=== PATIENT | male | born 1940 | race Caucasian/White ===

== ENCOUNTER 2022-05-27 20:32 | Inpatient (IN) ==
[2022-05-27] MEDS ORDERED: NS 0.9% 1000 ml BAG 1,000 ML IV ONE (20:33)
[2022-05-27] MEDS ORDERED: Ondansetron 4 mg VIAL 2 MG/ML 2 ml VIAL IV ONE ×2 (20:38→23:10)
[2022-05-27 22:16] LABS: Hematocrit 46 % (42-52); Hemoglobin 14.2 g/dL (14.0-18.0); Mean Corpuscular HGB Conc 31 g/dL (31-36); Mean Corpuscular Hemoglobin 24 pg (27-31); Mean Corpuscular Volume 78 fL (80-94); Mean Platelet Volume 9.7 fL (7.4-10.4); Platelet Count 218 10^3/uL (150-450); Red Blood Count 5.91 10^6 /uL (4.18-5.48); Red Cell Distribution Width 24 % (10-15); White Blood Count 8.1 10^3/uL (3.5-10.8)
[2022-05-27] MEDS ORDERED: Piperacillin/Tazobac ADVAN 3.375 GM in NS 0.9% 100 ml BAG 100 ML IV ONE (22:39)
[2022-05-27 22:52] LABS: ABS Lymphocytes 1.1 10^3/ul (1.0-4.8); ABS Monocytes 0.6 10^3/ul (0-0.8); ABS Neutrophils 6.3 10^3/ul (1.5-7.7); Albumin 4.4 g/dL (3.2-5.2); Albumin/Globulin Ratio 1.6 (1-3); C Reactive Protein 4.02 mg/L (<8.01); Calcium 11.2 mg/dL (8.6-10.3); Eosinophil % 0.2 %; Globulin 2.8 g/dL (2-4); Lymphocyte % 13.3 %; Total Bilirubin 0.7 mg/dL (0.2-1.0); Total Protein 7.2 g/dL (6.4-8.9); eGFR CKD-EPI 45.3 (>60)
[2022-05-27 22:54] LABS: Potassium 5.1 mmol/L (3.5-5.0)
[2022-05-27] MEDS ORDERED: fentaNYL 100 mcg/2 ml 50 MCG/ML VIAL IV SLOW PU ONE (23:10)
[2022-05-28] MEDS ORDERED: fentaNYL 100 mcg/2 ml 50 MCG/ML VIAL ONE (01:57)
[2022-05-28] MEDS ORDERED: Rocuronium 50 mg VIAL 10 mg/ml 5 ml VIAL (50 mg) ONE (02:02)
[2022-05-28] MEDS ORDERED: Lidocaine 2% PF 5 ML VIAL ONE (02:02)
[2022-05-28] MEDS ORDERED: Dexamethasone IV 4 MG/ML VIAL 1 ml VIAL ONE (02:03)
[2022-05-28] MEDS ORDERED: Propofol 10 MG/ML 20 ML BTL ONE (02:03)
[2022-05-28] MEDS ORDERED: Bupivacaine 0.25% EPI 200,000 30 ML SDV ONE (02:07)
[2022-05-28] MEDS ORDERED: Phenylephrine 40 mcg/mL 10mL (400mcg) SYRINGE ONE ×3 (02:39→04:56)
[2022-05-28] MEDS ORDERED: Calcium CHLORIDE 10% SYRINGE 1 GM/10 ML ONE (03:21)
[2022-05-28] MEDS ORDERED: Albumin Human 5% 12.5 GM/250 ML BTL IV ONE (04:00)
[2022-05-28] MEDS ORDERED: Ondansetron 4 mg VIAL 2 MG/ML 2 ml VIAL ONE (04:38)
[2022-05-28] MEDS ORDERED: Acetaminophen IV 1 GM/100ML 1,000 MG/100 ML BAG IV ONE (04:38)
[2022-05-28] MEDS ORDERED: HYDROmorphone 1 MG/1 ML SYRINGE IV SLOW PU PRN (05:23)
[2022-05-28] MEDS ORDERED: Ondansetron 4 mg VIAL 2 MG/ML 2 ml VIAL IV PRN ×2 (05:23→05:50)
[2022-05-28] MEDS ORDERED: fentaNYL 100 mcg/2 ml 50 MCG/ML VIAL IV PRN (05:50)
[2022-05-28] MEDS ORDERED: Naloxone 0.4 mg VIAL 0.4 mg/ml 1 ml VIAL IV PRN (05:50)
[2022-05-28] MEDS ORDERED: Lactated Ringers 1000 ml BAG 1,000 ML IV SCH (06:00)
[2022-05-28] MEDS: Piperacillin/Tazobactam VIAL 3.375 GM in NS 0.9% 100 ml BAG 100 ML IVPB SCH ×3 (07:05→22:55)
[2022-05-28] MEDS: Pantoprazole 80 mg in NS BAG 80 MG/250 ML BAG IV SCH ×2 (07:05→16:58)
[2022-05-28 07:21] LABS: Hematocrit 42 % (42-52); Hemoglobin 13.1 g/dL (14.0-18.0); Mean Corpuscular HGB Conc 31 g/dL (31-36); Mean Corpuscular Hemoglobin 24 pg (27-31); Mean Corpuscular Volume 78 fL (80-94); Mean Platelet Volume 9.5 fL (7.4-10.4); Platelet Count 160 10^3/uL (150-450); Red Blood Count 5.39 10^6 /uL (4.18-5.48); Red Cell Distribution Width 23 % (10-15); White Blood Count 5.1 10^3/uL (3.5-10.8)
[2022-05-28 07:23] LABS: ABS Lymphocytes 0.4 10^3/ul (1.0-4.8); ABS Monocytes 0.6 10^3/ul (0-0.8); ABS Neutrophils 4.1 10^3/ul (1.5-7.7); Eosinophil % 0.1 %; Lymphocyte % 8.2 %
[2022-05-28 08:00] LABS: Albumin 3.7 g/dL (3.2-5.2); Albumin/Globulin Ratio 1.7 (1-3); Calcium 10.5 mg/dL (8.6-10.3); Globulin 2.2 g/dL (2-4); Total Protein 5.9 g/dL (6.4-8.9); eGFR CKD-EPI 40.5 (>60)
[2022-05-28] MEDS: NS 0.9% 1000 ml BAG 1,000 ML IV SCH ×2 (08:29→17:08)
[2022-05-28] MEDS ORDERED: NS 0.9% 500 ml BAG 500 ML IV ONE (12:39)
[2022-05-28] MEDS ORDERED: Dextrose 50% Syringe 50 ml 25 GM/50 ML SYRINGE IV PUSH PRN (15:09)
[2022-05-28] MEDS ORDERED: Phenol 1.4% Throat Spray 177 ml BTL MT PRN (16:36)
[2022-05-29] MEDS: NS 0.9% 1000 ml BAG 1,000 ML IV SCH ×3 (01:44→21:26)
[2022-05-29] MEDS: Pantoprazole 80 mg in NS BAG 80 MG/250 ML BAG IV SCH ×2 (03:32→13:56)
[2022-05-29 05:10] LABS: Hematocrit 36 % (42-52); Hemoglobin 11.6 g/dL (14.0-18.0); Mean Corpuscular HGB Conc 32 g/dL (31-36); Mean Corpuscular Hemoglobin 25 pg (27-31); Mean Corpuscular Volume 78 fL (80-94); Mean Platelet Volume 9.6 fL (7.4-10.4); Platelet Count 130 10^3/uL (150-450); Red Blood Count 4.69 10^6 /uL (4.18-5.48); Red Cell Distribution Width 24 % (10-15); White Blood Count 9.2 10^3/uL (3.5-10.8)
[2022-05-29 05:49] LABS: Calcium 8.5 mg/dL (8.6-10.3); eGFR CKD-EPI 40.2 (>60)
[2022-05-29 06:02] LABS: Potassium 5.2 mmol/L (3.5-5.0)
[2022-05-29] MEDS: Piperacillin/Tazobactam VIAL 3.375 GM in NS 0.9% 100 ml BAG 100 ML IVPB SCH ×3 (06:22→21:40)
[2022-05-29 08:37] LABS: ABS Lymphocytes 0.8 10^3/ul (1.0-4.8); ABS Monocytes 0.9 10^3/ul (0-0.8); ABS Neutrophils 7.4 10^3/ul (1.5-7.7); Eosinophil % 0.1 %
[2022-05-30] MEDS: Pantoprazole 80 mg in NS BAG 80 MG/250 ML BAG IV SCH ×4 (01:38→23:26)
[2022-05-30] MEDS: Piperacillin/Tazobactam VIAL 3.375 GM in NS 0.9% 100 ml BAG 100 ML IVPB SCH ×3 (05:22→19:45)
[2022-05-30] MEDS: NS 0.9% 1000 ml BAG 1,000 ML IV SCH (06:49)
[2022-05-30 07:14] LABS: Hematocrit 35 % (42-52); Hemoglobin 10.7 g/dL (14.0-18.0); Mean Corpuscular HGB Conc 31 g/dL (31-36); Mean Corpuscular Hemoglobin 25 pg (27-31); Mean Corpuscular Volume 80 fL (80-94); Mean Platelet Volume 9.7 fL (7.4-10.4); Platelet Count 137 10^3/uL (150-450); Red Blood Count 4.37 10^6 /uL (4.18-5.48); Red Cell Distribution Width 24 % (10-15); White Blood Count 8.4 10^3/uL (3.5-10.8)
[2022-05-30 07:53] LABS: Calcium 8.3 mg/dL (8.6-10.3); Magnesium 2.3 mg/dL (1.9-2.7); Potassium 4.3 mmol/L (3.5-5.0); Total Bilirubin 0.7 mg/dL (0.2-1.0)
[2022-05-30 07:59] LABS: Albumin/Globulin Ratio 1.4 (1-3); Globulin 2.2 g/dL (2-4); Phosphorus 2.1 mg/dL (2.5-5.0); Total Protein 5.2 g/dL (6.4-8.9); eGFR CKD-EPI 47.5 (>60)
[2022-05-31] MEDS: Piperacillin/Tazobactam VIAL 3.375 GM in NS 0.9% 100 ml BAG 100 ML IVPB SCH ×4 (00:28→18:30)
[2022-05-31 08:32] LABS: Calcium 8.9 mg/dL (8.6-10.3); Potassium 3.9 mmol/L (3.5-5.0); eGFR CKD-EPI 58.8 (>60)
[2022-05-31] MEDS: Pantoprazole 80 mg in NS BAG 80 MG/250 ML BAG IV SCH (10:35)
[2022-05-31] MEDS ORDERED: Potassium Phosphate IV 15 MMOLE in NS 0.9% 250 ml 250 ML IVPB ONE (13:21)
[2022-06-01] MEDS: Piperacillin/Tazobactam VIAL 3.375 GM in NS 0.9% 100 ml BAG 100 ML IVPB SCH ×4 (02:01→19:57)
[2022-06-01 07:31] LABS: Calcium 8.4 mg/dL (8.6-10.3); Potassium 4.2 mmol/L (3.5-5.0); eGFR CKD-EPI 56.6 (>60)
[2022-06-02] MEDS: Piperacillin/Tazobactam VIAL 3.375 GM in NS 0.9% 100 ml BAG 100 ML IVPB SCH ×2 (02:54→08:29)
[2022-06-02 06:38] LABS: Calcium 8.3 mg/dL (8.6-10.3); Potassium 4.1 mmol/L (3.5-5.0); eGFR CKD-EPI 54.5 (>60)
[2022-06-02 11:49] VITALS: BP 157/67
== END 2022-06-02 15:00 | disposition home or self-care (01) | DRG 331 ==
LOC: ED 20:32 → SSU 05-28 05:23
PROVIDERS: ADMIT Surgery; ATTEND Surgery